=== PATIENT | female | born 1965 | race Caucasian/White ===

== ENCOUNTER → 2018-09-21 | Outpatient (CLI) | payer OTHER ==
--- NOTE | 2018-09-21 13:29 | 2DMMODE ---
[place] [address] 2 D/M-MODE ECHOCARDIOGRAM Name: ERIN FERNANDEZ Room: [facility]#: [id number] Admission: 09/21/18 Attend Phys: Ginna Hopson Discharge: Date of : 69 Date of Service: 09/21/18 1329 Report #: [id number] THIS REPORT FOR: //name// APPROVED REPORT Study performed: 09/21/2018 08:14:03 EXAM: Comprehensive 2D, Doppler, and color-flow Echocardiogram Patient Location: Out-Patient BSA: 2.13 HR: 68 bpm BP: 130/88 mmHg Other Information Study Quality: Good Indications Murmur 2D Dimensions IVSd: 9.90 (7-11mm) LVOT Diam: 20.28 (18-24mm) LVDd: 43.17 mm PWd: 11.93 (7-11mm) Ascending Ao: 28.29 (22-36mm) LVDs: 31.32 (25-40mm) Aortic Root: 25.32 mm Volumes Left Atrial Volume (Systole) LA ESV Index: 13.60 mL/m2 Aortic Valve AoV Peak Baron.: 1.48 m/s AO Peak Gr.: 8.75 mmHg LVOT Max P.34 mmHg AO Mean Gr.: 5.27 mmHg LVOT Mean P.89 mmHg LVOT Max V: 1.53 m/s AO V2 VTI: 28.18 cm LVOT Mean V: 1.02 m/s ANDRÉS (VTI): 3.51 cm2 LVOT V1 VTI: 30.67 cm Mitral Valve E/A Ratio: 1.03 MV Decel. Time: 234.13 ms MV E Max Baron.: 0.77 m/s MV PHT: 67.90 ms MVA (PHT): 3.24 cm2 [place] [address] 2 D/M-MODE ECHOCARDIOGRAM Name: REBECCAERINMATTHEW OBRIEN Room: [facility]#: [id number] Admission: 09/21/18 Attend Phys: Ginna Hopson Discharge: Date of : 69 Date of Service: 09/21/18 1329 Report #: [id number] TDI E/Lateral E': 5.50 E/Medial E': 8.56 Medial E' Baron.: 0.09 m/s Lateral E' Baron.: 0.14 m/s Pulmonary Valve PV Peak Baron.: 1.12 m/s PV Peak Gr.: 4.98 mmHg Tricuspid Valve RAP Estimate: 5.00 mmHg TR Peak Gr.: 18.09 mmHg RVSP: 23.09 mmHg PA Pressure: 23.09 mmHg Left Ventricle The left ventricle is normal size. There is normal LV segmental wall motion. There is normal left ventricular wall thickness. Left ventricular systolic function is normal. The left ventricular ejection fraction is within the normal range. LVEF is 55-60%. The left ventricular diastolic function is normal. Right Ventricle The right ventricle is normal size. The right ventricular systolic function is normal. Atria The left atrium size is normal. The right atrium size is normal. Aortic Valve The aortic valve is normal in structure. No aortic regurgitation is present. There is no aortic valvular stenosis. Mitral Valve The mitral valve is normal in structure. There is no mitral valve regurgitation noted. No evidence of mitral valve stenosis. Tricuspid Valve The tricuspid valve is normal in structure. Trace tricuspid regurgitation. Pulmonic Valve The pulmonary valve is normal in structure. There is no pulmonic valvular regurgitation[place] [address] 2 D/M-MODE ECHOCARDIOGRAM Name: REBECCAERIN MICAH Room: [facility]#: [id number] Admission: 09/21/18 Attend Phys: Ginna Hopson Discharge: Date of : 69 Date of Service: 09/21/18 1329 Report #: [id number] The aortic root is normal in size. IVC is normal in size and collapses >50% with inspiration. Pericardium There is no pericardial effusion. <Conclusion> Left ventricular systolic function is normal. The left ventricular ejection fraction is within the normal range. <ELECTRONICALLY SIGNED> By: Rehan Willingham MD, FACC 09/21/18 1329 Rehan Willingham MD, FACC /INF
== END ==
LOC: M.CRD 08:00
DX: R01.1 Cardiac murmur, unspecified (principal)